=== PATIENT | female | born 1970 | race Caucasian/White ===

== ENCOUNTER → 2016-10-08 | Outpatient (CLI) | payer BC ==
--- NOTE | 2016-10-12 14:44 | XA ---
Exam Date: 10/08/16 Patient's Age: 46 HEIGHT: 65.0 in WEIGHT: 198.0 lbs INDICATIONS: Back Pain FRACTURES: TREATMENTS: Aleve ASSESSMENT: The BMD measured at Femur Neck Mean is 0.994 g/cm2 with a T-score of -0.3. Bone density is up to 10% below young normal. This patient is considered normal according to World Health Organization (WHO) criteria. Fracture risk is low. The BMD measured at Femur Troch Mean is 0.856 g/cm2 with a T-score of 0.0 is normal. Fracture risk is low. RESULTS: Site Region Age Classification T-Score BMD AP Spine L1-L4 47.2 Normal 0.2 1.223 g/cm2 Dual Femur Neck Mean 47.2 Normal -0.3 0.994 g/cm2 Dual Femur Troch Mean 47.2 N/A 0.0 0.856 g/cm2 Dual Femur Total Mean 47.2 Normal 0.5 1.075 g/cm2 World Health Organization - Criteria for post-menopausal, women: Normal: T-Score at or above -1 SD Osteopenia: T-Score between -1 and -2.5 SD Osteoporosis: T-Score at or below -2.5 SD RECOMMENDATION: Pharmacologic treatment recommendations & Initiate pharmacologic treatment: - In those with hip or vertebral (clinical or asymptomatic) fractures - In those with T -scores <-2.5 at the femoral neck, total hip, or lumbar spine by DXA - In postmenopausal women and men age 50 and older with low bone mass (T-score between -1.0 and -2.5, osteopenia) at the femoral neck, total hip, or lumbar spine by DXA and a 10-year hip fracture probability >3 % or a 10-year major osteoporosis-related fracture probability >20% based on the [place]-adapted WHO absolute fracture risk model (Fracture Risk Algorithm (FRAX); www. NOF.org and www.shef.ac.uk/FRAX) FOLLOW UP: People with diagnosed cases of osteoporosis or at high risk for fracture should have regular bone mineral density tests. For patients eligible for Medicare, routine testing is allowed once every 2 years. The testing frequency can be increased to 1 year for patients who have rapidly progressing disease, those who are reviewing or discontinuing medial therapy to restore bone mass, or have additional risk factors. People with diagnosed cases of osteoporosis or osteopenia should be regularly tested for bone mineral density. For patient eligible for Medicare, routine testing is allowed once every 2 years. The testing frequency can be increased to 1 year for patients who have rapidly progressing disease, or for those who are receiving medial therapy to restore bone mass. [facility] -- [place] [phone] - FAX: [phone] JAMIN
== END ==
LOC: MW.DI 10:42
PROVIDERS: ATTEND Nurse Practitioner Family
DX: Z13.820 Encounter for screening for osteoporosis (principal); M25.50 Pain in unspecified joint
CPT/HCPCS: 77080; 77080-26